=== PATIENT | male | born 1975 | race Caucasian/White ===

== ENCOUNTER 2019-02-21 17:23 | Inpatient (IN) ==
--- NOTE | 2019-02-21 18:01 | PROVIDER DOCUMENTATION ---
HPI-Rash/Wound/ReCheck - General Chief Complaint: Groin Pain Stated Complaint: RETURN/RETREAT Time Seen by Provider: 02/21/19 17:59 Source: patient Allergies/Adverse Reactions: Allergies Allergy/AdvReac Type Severity Reaction Status Date / Time No Known Allergies Allergy Verified 02/20/19 10:22 Home Medications: Home Medication List Medication Instructions Recorded Confirmed Last Taken Type Amlodipine Besylate 5 mg PO DAILY 02/20/19 02/20/19 Unknown History Atorvastatin Calcium 20 mg PO QPM 02/20/19 02/20/19 Unknown History Clindamycin [Cleocin] 150 mg PO Q6HR #30 cap 02/20/19 Unknown Rx Clonidine HCl 0.2 mg PO BID 02/20/19 02/20/19 Unknown History Duloxetine HCl 60 mg PO DAILY 02/20/19 02/20/19 Unknown History Insulin Aspart [Novolog] 6 units SQ QPM 02/20/19 02/20/19 Unknown History Insulin Aspart [Novolog] 10 units SQ DIRECTED 02/20/19 02/20/19 Unknown History Insulin Degludec [Tresiba] 14 units SQ QPM 02/20/19 02/20/19 Unknown History Metoprolol [Lopressor] 50 mg PO QPM 02/20/19 02/20/19 Unknown History Tramadol HCl 2 tab PO BID 02/20/19 02/20/19 Unknown History - History of Present Illness-Dermatology Nature of Presenting Problem: Patient is a 44yo M who presents for a recheck. Patient was seen in ED yesterday for cellulitis to his R groin. Reports he was told he needed to be admitted for IV antibiotics, however patient left AMA d/t not having anyone to watch his children. Patient reports he has had the wound x3 days. Reports hx of Staph in the same location requiring inpatient admission. States he has had a fever/chills. Was given IV antibiotics in ED yesterday, and sent with prescription for Clindamycin, which he did not fill. Reports he is a diabetic. Denies any CP, SOB, n/v/d. Location: reports: genitalia (R groin) Quality: reports: burning, painful Severity: reports: moderate Onset/Duration: reports: 3 days ago Timing: reports: still present Context/Associated Symptoms: reports: abscess, fever, tender area Identifiable cause?: No Similar Symptoms Previously?: Yes Recently seen or treated by another doctor?: Yes (Seen in ED yesterday) Review of Systems - Adult - REVIEW OF SYSTEMS - ADULT Constitutional: reports: chills, fever Eyes: reports: no symptoms reported Ears, Nose, Mouth & Throat: reports: no symptoms reported Cardiovascular: denies: chest pain, palpitations Respiratory: denies: cough, shortness of breath Gastrointestinal: denies: diarrhea, nausea, vomiting Genitourinary: reports: no symptoms reported Musculoskeletal: reports: no symptoms reported Integumentary: reports: see HPI, skin sores/ulcer Neurological: reports: no symptoms reported Psychiatric: reports: no symptoms reported Endocrine: reports: no symptoms reported All Other Systems: Reviewed and Negative Past History - Adult - PAST MEDICAL HISTORY-ADULT Review of Records: reports: Old Records Reviewed, Nursing Assessment Review, Medications Reviewed Major Childhood Illnesses: reports: denies history Cardiovascular: reports: denies history Respiratory: reports: denies history Gastrointestinal: reports: denies history Obstetrical/Gynecological: reports: denies history Genitourinary: reports: denies history Musculoskeletal: reports: denies history Neurological: reports: denies history Endocrine/Immune: reports: Diabetes Other Conditions: reports: denies history - PRIOR SURGERIES/PROCEDURES Surgical/Procedure History: reports: cholecystectomy - IMMUNIZATION STATUS Childhood Immunizations: See Nurse Assessment Flu Vaccine: See Nurse Assessment - FAMILY HISTORY Family History: diabetes - SOCIAL HISTORY Smoking: non-smoker Physical Exam-General - PHYSICAL EXAM-ADULT Initial Vital Signs Reviewed: Yes - CONSTITUTIONAL General Appearance: alert, mild distress - EYES Eyes: PERRL/EOMI, pink conjunctivae - HEAD, EARS, NOSE, MOUTH & THROAT HENMT: normocephalic/atraumatic, moist mucous membranes - NECK Neck: full range of motion, supple, normal inspection - RESPIRATORY Respiratory: chest non-tender, lungs clear, normal breath sounds, no pleuratic chest pain, no respiratory distress, no accessory muscle use - CARDIOVASCULAR Cardiovascular: regular rate, rhythm, no gallop, no murmur - GENITOURINARY Male Genitalia: erythema (R groin as well as abscess), other ([id number] abscess and surrounding erythema to R groin) Rectal Exam: deferred - MUSCULOSKELETAL Back Exam: normal inspection Extremity: normal range of motion, non-tender, normal gait, normal inspection - SKIN Integumentary: normal color, warm/dry, other ([id number] abscess w/ surrounding erythema to R groin) - NEUROLOGIC Neurologic: grossly normal - PSYCHIATRIC Psych/Mental Status: normal mood/affect, normal thought content, normal thought process, oriented x 3 Progress - PLAN OF CARE/RESULTS Progress/Plan/Lab Results: Vital Signs - 8 hr 02/21/19 17:30 02/21/19 21:06 Temperature 98.5 F 98.4 F Pulse Rate 92 H 89 Respiratory Rate 18 18 Blood Pressure 133/084 147/89 O2 Sat by Pulse Oximetry 99 98 Laboratory Results - last 24 hr 02/21/19 02/21/19 02/21/19 20:01 20:01 20:01 WBC 13.26 H RBC 4.10 L Hgb 13.4 L Hct 39.4 L MCV 96.1 MCH 32.7 H MCHC 34.0 RDW Std Deviation 11.7 Plt Count 223 MPV 10.4 Immature Gran % (Auto) 0.2 Neut % (Auto) 68.4 Lymph % (Auto) 21.5 [place] % (Auto) 8.4 Eos % (Auto) 1.3 Baso % (Auto) 0.2 Immature Gran # (Auto) 0.02 Neut # (Auto) 9.08 H Lymph # (Auto) 2.85 [place] # (Auto) 1.11 H Eos # (Auto) 0.17 Baso # (Auto) 0.03 Sodium 138 Potassium 4.8 Chloride 96 L Carbon Dioxide 25 Anion Gap 17 BUN 14 Creatinine 0.7 Estimated GFR/1.73 m2 > 60 BUN/Creatinine Ratio 20 Glucose 200 H Calculated Osmolality 282 Calcium 9.4 Total Bilirubin 0.90 AST 28 ALT 24 Alkaline Phosphatase 167 H Total Protein 7.8 Albumin 4.7 Globulin 3.0 Albumin/Globulin Ratio 2.0 Plasma Lactate 1.6 Orders Category Date Time Status Saline Loc NOW Care 02/21/19 18:01 Active BLOOD CULTURE [BLDCUL] Stat Lab 02/21/19 20:07 Ordered CBC WITH ELECTRONIC DIFF [HEME] Stat Lab 02/21/19 20:01 Completed COMPREHENSIVE METABOLIC PANEL [CHEM] Stat Lab 02/21/19 20:01 Completed LACTATE, PLASMA [CHEM] Stat Lab 02/21/19 20:[address] W/POSS RFLX CULT [URINALYSIS] Stat Lab 02/21/19 21:08 Received WOUND CULTURE INC GRAM STAIN [RM] Routine Lab 02/21/19 21:28 Ordered Acetaminophen [Tylenol] Med 02/21/19 20:24 Discontinued 1,000 mg PO NOW ONE Clindamycin 600 mg/D5w Med 02/21/19 19:35 Discontinued 600 mg in 50 ml IV NOW Lidocaine 1% Pf [Xylocaine-Mpf 1%] Med 02/21/19 21:00 Discontinued 10 ml INJ NOW ONE Result Diagrams: 02/21/19 20:01 02/21/19 20:01 - CONSULTS/PCP/HOSPITALIST Notification #1 *Consult/PCP/Hospitalist*: MD Loyda Time Discussed: 21:24 Reason/Comments: Groin abscess & cellulitis Consult Disposition: Admit Procedures - INCISION & DRAINAGE Site: R groin Abscess Type: Cutaneous Prepped with: Hibiclens Anesthetic: 1% Volume of Anesthetic (ml's): 2 Blade Size: 11 Packing placed?: No (Wound too shallow) Sterile Dressing Applied?: Yes Drainage: Purulent, Small Amount Procedure Comment: Tolerated well Departure - Departure Date of Disposition Decision: 02/21/19 Time of Disposition Decision: 21:32 DIAGNOSIS: Abscess of groin, right Cellulitis Qualifiers: Site of cellulitis: trunk Site of cellulitis of trunk: groin Qualified Code(s): L03.314 - Cellulitis of groin Disposition: ADMITTED INPATIENT 09 Certified Medical Emergency: Emergent Condition: Stable Referrals and Follow-Ups: None,PCP [Primary Care Provider] - - Critical Care Note This patient required my direct & personal management of CC.: No Attestation - Physician/ SHARON Attestation Patient care was provided by Advanced Practice Provider:: Yes Advanced Practice Provider:: Luly Loya Advanced Practice Provider documentation review:: The Mid-level provider documentation, treatment plan and medical decision making was reviewed by the physician who agrees with all treatment and medical decision making by the [facility]. The physician spent face to face time with patient:: Yes Advanced Practice Provider documentation review:: Supervising physician onsite and consulted in the evaluation and care of this patient. The physician did have a face to face encounter with the patient.
[2019-02-21] MEDS ORDERED: CLINDAMYCIN 600 MG/D5W 600 MG/50 ML IVPB IV ONE (19:35)
[2019-02-21 20:19] LABS: BASO# 0.03 X1000 (0.0-0.2); BASO% 0.2 % (0.0-0.8); EOS# 0.17 X1000 (0.0-0.7); EOS% 1.3 % (0.0-10.0); HEMATOCRIT 39.4 % (42.0-52.0); HEMOGLOBIN 13.4 g/dL (14.0-18.0); IMM GRAN# 0.02 X1000 (0.0-0.04); IMM GRAN% 0.2 % (0.0-0.5); LYMPH# 2.85 X1000 (1.2-3.4); LYMPH% 21.5 % (20.5-51.1); MCH 32.7 PG (27-31); MCV 96.1 FL (81-99); MONO# 1.11 X1000 (0.11-0.59); MONO% 8.4 % (1.7-9.3); MPV 10.4 FL (7.4-10.4); NEUT# 9.08 X1000 (1.4-6.5); NEUT% 68.4 % (42.2-75.2); PLT 223 X1000 (130-400); RDW 11.7 % (11.5-14.5); WBC 13.26 X1000 (4.8-10.8)
[2019-02-21] MEDS ORDERED: TYLENOL PO ONE (20:24)
[2019-02-21 20:46] LABS: AGAP 17; ALBUMIN 4.7 g/dL (3.5-5.0); ALKALINE PHOSPHATASE 167 U/L (32-122); BUN 14 mg/dL (8-22); CALCIUM 9.4 mg/dL (8.8-10.2); CHLORIDE 96 mmol/L (98-107); COSMO 282; CREATININE 0.7 mg/dL (0.7-1.2); ESTIMATED GFR > 60; GLUCOSE 200 mg/dL (70-104); GOT 28 U/L (10-34); GPT 24 U/L (10-44); POTASSIUM 4.8 mmol/L (3.5-5.1); SODIUM 138 mmol/L (136-145); TCO2 25 mmol/L (25-35); TOTAL PROTEIN 7.8 g/dL (6.3-8.3)
[2019-02-21] MEDS ORDERED: XYLOCAINE-MPF 1% INJ ONE (21:00)
[2019-02-21 21:37] LABS: BILIRUBIN URINE NEGATIVE (NEGATIVE); BLOOD URINE NEGATIVE (NEGATIVE); CLARITY CLEAR (CLEAR); COLOR YELLOW; KETONE URINE 2+(Moderate) mg/dL (NEGATIVE); LEUKOCYTES URINE TRACE (NEGATIVE); NITRITE URINE NEGATIVE (NEGATIVE); PH URINE 6.5; PROTEIN URINE TRACE mg/dL (NEGATIVE); UROBILINOGEN URINE NORMAL
[2019-02-21 21:52] LABS: URINE BACTERIA 1+ /HFP; URINE CAST NONE SEEN /LPF; URINE CRYSTAL NONE SEEN /HPF; URINE EPITHELIAL CELLS >10 /HPF (<10); URINE RBC <10 /HPF (<10); URINE SOURCE CLEAN CATCH; URINE WBC <10 /HPF (<10); URINE YEAST NONE SEEN /HPF
[2019-02-21] MEDS ORDERED: TORADOL IV ONE (22:01)
[2019-02-21] MEDS ORDERED: HUMULIN R (PARKWAY) SUBQ ONE (22:47)
[2019-02-21] MEDS ORDERED: VANCOMYCIN IV PER PHARMACY MISC SCH (23:00)
[2019-02-21] MEDS: HUMULIN R (PARKWAY) SUBQ SCH (23:12)
[2019-02-21] MEDS ORDERED: TORADOL IV PRN (23:52)
[2019-02-22] MEDS: VANCOMYCIN 1 GM/NS 1 GM/250 ML IVPB IV SCH ×2 (00:39→01:30)
[2019-02-22] MEDS: CLINDAMYCIN 600 MG/D5W 600 MG/50 ML IVPB IV SCH ×4 (02:38→21:52)
[2019-02-22] MEDS: HUMULIN R (PARKWAY) SUBQ SCH ×4 (09:13→20:26)
[2019-02-22] MEDS ORDERED: INSULIN PEN NEEDLES MISC PRN (09:36)
--- NOTE | 2019-02-22 10:00 | HISTORY AND PHYSICAL ---
PRIMARY CARE PHYSICIAN: Listed as none. CHIEF COMPLAINT: Right groin pain. HISTORY OF PRESENTING ILLNESS: This is a 44-year-old male who presents to [facility] ER after he was seen in the emergency department the day prior for a cellulitis and possible abscess to his right groin. He did not have any one to watch his children, and he is a single dad so he left AMA, but he had a prescription for clindamycin, but did not fill. The area to his right groin was noted to be erythematous, edematous, and warm to touch. He had an approximate 4 inch x 1-1/2 inch abscess. The ER physician attempted to drain, and got a small amount of purulent drainage. They marked the area with skin markings, and he was placed on IV antibiotics. In the emergency room, he received clindamycin 600 mg and vancomycin 1 gram IV this morning. The area is less erythematous, and the skin markings are still in place with the erythema subsiding from those edges, and does not go outside of those edges at all. It is still warm to touch. He is noted to have a dressing in place from the I D, and is still draining some purulent drainage from that area. His white blood cell count on arrival was 13.26 so he was admitted for further evaluation and treatment. PAST MEDICAL HISTORY: Diabetes, hypertension, hyperlipidemia, depression, and chronic pain. PAST SURGICAL HISTORY: Cholecystectomy. FAMILY HISTORY: He currently lives with his children. SOCIAL HISTORY: Denies any tobacco, alcohol or illicit drug use. ALLERGIES: He has no known drug allergies. HOME MEDICATIONS: He takes Norvasc 5 mg p.o. at bedtime, atorvastatin 20 mg p.o. every evening, clonidine 0.2 mg p.o. b.i.d., duloxetine 60 mg p.o. daily, NovoLog 6 units subc every evening and 10 units subcutaneous every morning, and at lunch time. Tresiba 14 units every evening, Lopressor 50 mg p.o. every evening, and tramadol 50 mg 2 tablets p.o. b.i.d. LABORATORY DATA: White blood cell count of 13.26, hemoglobin 13.4, hematocrit 39.4, and platelets 223,000. Sodium 138, potassium 4.8, chloride 96, CO2 25, BUN of 14, creatinine 0.7, glucose of 200. Plasma lactate of 1.6. Urinalysis was negative except for 1+ bacteria. It is noted when he was in the emergency room on 02/20/2019 they did do a pelvic ultrasound that showed mildly prominent lymph nodes, but no abscess identified at that time. REVIEW OF SYSTEMS: He denied any fever, chills, blurred vision, dizziness, chest pain, coughing, or shortness of breath. Denied any abdominal pain, constipation, diarrhea, burning or hurting with urination. He was positive for pain to his right groin area. PHYSICAL EXAMINATION: On arrival, he had a temperature of 98.5 degrees, pulse 92, respirations 18, blood pressure 133/84 and saturating 99% on room air. GENERAL: This is a 44-year-old male who is sitting up in the bed and answers questions appropriately. HEENT: Normocephalic, atraumatic. Normal ENT inspection. Oropharynx and nares are clear. EYES: Pupils are equal, round, reactive to light and accommodation. Extraocular movements are intact. NECK: Normal inspection. Normal range of motion. LUNGS: Clear to auscultation bilaterally with equal lung expansion and chest wall movement. HEART: Regular rate and rhythm. No murmurs, rubs, or gallops. ABDOMEN: Soft, nontender, and nondistended. Bowel sounds are present x4 quadrants. MUSCULOSKELETAL: He has 5/5 strength x4 extremities. SKIN: He is noted to have to his right groin erythema, edema and warmth to touch. When he arrived, it was a 1.5 inch x 4 inch abscess that was I D in the emergency room. Continues to drain some purulent drainage. Skin markings were placed and the erythema has improved. NEUROLOGICAL: The cranial nerves 2-12 appear grossly intact. ASSESSMENT: 1. Right groin cellulitis with abscess. 2. Mild leukocytosis secondary to #1. 3. Diabetes type 2. 4. Hypertension. PLAN: He was admitted to the medical unit, placed on a diabetic diet. We have a wound culture and urine culture pending, and blood cultures are pending x2. He was placed on clindamycin 600 mg IV q.6. The vancomycin per pharmacy protocol. Pattern blood sugars with sliding scale insulin. We will continue his home medications as previously identified. Recheck a CBC and BMP in the morning, and further orders after being seen by attending. Dictated by ODALYS Ghosh for Rowdy Scales MD cc: ODALYS Ghosh MD
[2019-02-22] MEDS: CATAPRES PO SCH ×2 (10:48→20:16)
[2019-02-22] MEDS: CYMBALTA PO SCH (10:50)
[2019-02-22] MEDS: ULTRAM PO SCH ×2 (10:51→20:15)
--- NOTE | 2019-02-22 13:27 | GENERAL SURGERY CONSULTATION ---
DATE: 02/22/2019 REQUESTING PHYSICIAN: Hospitalist. REASON FOR CONSULTATION: Groin abscess. HISTORY OF PRESENT ILLNESS: A 44-year-old gentleman with a history of groin abscess in the right groin, who initially presented to the ER at [place] the day before admission with this area. He had left AGAINST MEDICAL ADVICE secondary to inability to have anybody watch his kids. He came back to the emergency department with this area of abscess. It was drained apparently in the emergency department. He has been started on antibiotics. This wound has been present for 3 days, but he has had a history of staph infection, requiring inpatient admission in the past. He had an ultrasound done that showed no other pathology, except some prominent lymph nodes. I was asked to weigh an opinion. This area is already improved since the incision and drainage, based off of the skin markings. PAST MEDICAL HISTORY: Includes: 1. History of diabetes. 2. Previous skin infections. PAST SURGICAL HISTORY: Includes cholecystectomy, previous incision and drainage. SOCIAL HISTORY: Does drink 3 glasses of wine each day. Nonsmoker. FAMILY HISTORY: Reviewed with the patient, and noncontributory. ALLERGIES: None. MEDICATIONS: Home medications reviewed. Current MAR reviewed. REVIEW OF SYSTEMS: A full 10-point review of systems was obtained and negative, except as specified in the HPI. PHYSICAL EXAMINATION: Vital Signs: The patient is currently afebrile. His vital signs are stable. General: No acute distress. HEENT: Normocephalic, atraumatic. Pupils equal, round, reactive to light. Mucous membranes moist. Oropharynx benign. Neck: Supple. Trachea midline. Cardiovascular: Regular rate and rhythm. Lungs: Grossly clear. Abdomen: Soft, nontender, nondistended. Extremities: Moves all extremities. Skin: Wound to the right groin noted. Some purulent drainage, erythema noted with induration. The erythema is less area than what was previously noted and marked. Vascular: Lower extremities perfused. Neurologic: Grossly intact. LABORATORY DATA: White blood cell count 13. Remainder of labs were reviewed. Microbiology is pending. ASSESSMENT AND PLAN: A 44-year-old gentleman with right groin abscess. 1. Right groin abscess. At this time, will continue antibiotics. Will add warm compresses and monitor, and will do local wound care. Hopefully, this will heal on its own with antibiotics. 2. Alcohol intake. May need to consider discussing delirium tremens protocol with the hospitalist. cc: Robert Caraballo MD
[2019-02-22] MEDS: VANCOMYCIN 1,550 MG in NS 250 ML IV SCH (13:33)
[2019-02-22] MEDS: HUMALOG (PARKWAY) SUBQ SCH (14:37)
[2019-02-22] MEDS: TRESIBA FLEXTOUCH U-100 SUBQ SCH (20:13)
[2019-02-22] MEDS: LIPITOR PO SCH (20:15)
[2019-02-22] MEDS: NORVASC PO SCH (20:15)
[2019-02-22] MEDS: LOPRESSOR PO SCH (20:16)
[2019-02-22] MEDS ORDERED: HUMALOG (PARKWAY) SUBQ SCH (21:00)
--- NOTE | 2019-02-22 22:18 | HISTORY AND PHYSICAL ---
ADDENDUM: The patient has a right groin abscess. Apparently, he had a left groin abscess that was drained previously. He had a facial abscess. He has got a lot of abscesses intermittently. The one in 2013 was an MSSA abscess, but in any case, he came in with treatment because he did not see anybody. So in any case, he has a right groin abscess he has had for several days, did not improve. He went to the ER a couple days ago, but then was not able to stay because he did not have childcare and he came back in within 24 hours and he was admitted for treatment. It looks like he has probably got an MRSA or a staph furunculosis. So he has had [address] Caraballo has evaluated the patient and he will continue to follow. We are just going to do wound care and IV antibiotics and see how he does. Apparently, he is a heavy alcohol user. We will have to be careful so we will continue to monitor. Well, he drinks 3 glasses of wine a day which I guess we will not monitor for withdrawal. Currently seems like he is doing okay, but we will continue to follow closely. Disposition pending his clinical status. He has also got a mild leukocytosis which actually improved after antibiotics but on exam he seems to be doing okay. However, he has purulent drainage with erythema that is still extending. I will continue vancomycin and clindamycin until we can get culture results and tailor his antibiotic therapy accordingly. We will continue to follow closely. cc: Rowdy Scales MD
[2019-02-23] MEDS: VANCOMYCIN 1,550 MG in NS 250 ML IV SCH ×2 (00:26→12:22)
[2019-02-23] MEDS: CLINDAMYCIN 600 MG/D5W 600 MG/50 ML IVPB IV SCH ×4 (04:24→23:37)
[2019-02-23 07:15] LABS: BASO# 0.02 X1000 (0.0-0.2); BASO% 0.2 % (0.0-0.8); EOS# 0.24 X1000 (0.0-0.7); EOS% 2.7 % (0.0-10.0); HEMATOCRIT 39.3 % (42.0-52.0); HEMOGLOBIN 13.3 g/dL (14.0-18.0); IMM GRAN# 0.01 X1000 (0.0-0.04); IMM GRAN% 0.1 % (0.0-0.5); LYMPH# 1.29 X1000 (1.2-3.4); LYMPH% 14.7 % (20.5-51.1); MCH 32.4 PG (27-31); MCHC 33.8 g/dL (33-37); MCV 95.6 FL (81-99); MONO% 6.8 % (1.7-9.3); NEUT# 6.62 X1000 (1.4-6.5); NEUT% 75.5 % (42.2-75.2); PLT 225 X1000 (130-400); RBC 4.11 XMIL (4.7-6.1); RDW 11.5 % (11.5-14.5); WBC 8.78 X1000 (4.8-10.8)
[2019-02-23 07:41] LABS: AGAP 12; BUN 18 mg/dL (8-22); CALCIUM 9.2 mg/dL (8.8-10.2); CHLORIDE 100 mmol/L (98-107); COSMO 284; CREATININE 0.7 mg/dL (0.7-1.2); ESTIMATED GFR > 60; GLUCOSE 244 mg/dL (70-104); POTASSIUM 4.7 mmol/L (3.5-5.1); SODIUM 137 mmol/L (136-145); TCO2 25 mmol/L (25-35)
[2019-02-23 07:44] LABS: HEMOGLOBIN A1C 8.2 % (4.8-6.0)
[2019-02-23] MEDS: HUMULIN R (PARKWAY) SUBQ SCH ×3 (08:11→16:32)
[2019-02-23] MEDS: ULTRAM PO SCH (08:12)
[2019-02-23] MEDS: CYMBALTA PO SCH (08:13)
[2019-02-23] MEDS: CATAPRES PO SCH ×2 (08:13→20:36)
[2019-02-23] MEDS: HUMALOG (PARKWAY) SUBQ SCH ×4 (08:13→20:35)
--- NOTE | 2019-02-23 09:48 | GENERAL SURGERY PROGRESS NOTE ---
DATE: 02/23/2019 SUBJECTIVE: Patient seems to be doing okay. OBJECTIVE: Vital Signs: Patient is currently afebrile. His vital signs are stable. General: No acute distress. HEENT: Normocephalic, atraumatic. Pupils equal, round, reactive to light. Mucous membranes moist. Oropharynx benign. Neck: Supple. Trachea midline. Cardiovascular: Regular rate and rhythm. Lungs: Grossly clear. Abdomen: Soft, nontender, nondistended. Right groin erythema and induration seemed to be about the same if not slightly better. No real fluctuance at this time. Extremities: Moves all extremities. Neurologic: Grossly intact. Skin: Wound as noted above. Vascular: All extremities perfused. LABORATORY: None this morning as of yet. Microbiology shows gram-positive cocci. ASSESSMENT AND PLAN: A 44-year-old with right groin abscess: 1. Right groin abscess. At this time, recommend continue antibiotics, although I think he probably drains be transitioned over to oral antibiotics. 2. From a surgical point of view, no immediate intervention needed. I would like to follow up with him in the office, but I think he can be discharged. cc: Robert Caraballo MD
[2019-02-23] MEDS: NORCO-7.5 PO PRN ×2 (15:51→20:36)
--- NOTE | 2019-02-23 17:00 | PROGRESS NOTE ---
DATE: 02/23/2019 SUBJECTIVE: The patient has no major complaints. OBJECTIVE: Vital Signs: Blood pressure is 146/86, heart rate of 88, respiratory rate of 20, temperature 98.2 degrees. Cardiovascular: Regular rate and rhythm. Pulmonary: Bilateral breath sounds clear to auscultation. GI: Soft, nontender, nondistended. Bowel sounds are positive. LABORATORY DATA: His white count has come down, 8 from 13. Hemoglobin and hematocrit 13 and 39, platelets of 225,000. Blood sugars still a little bit marginal. PROBLEM LIST: 1. Right groin abscess cellulitis. He is on antibiotics. The erythema and cellulitis have greatly improved. I am just waiting on final culture results. Preliminarily, though it is read as positive methicillin resistant Staphylococcus aureus, so we will need to treat that. 2. Diabetes. We will continue his regular medications. He usually takes Tresiba and NovoLog. His A1c is actually pretty not real well controlled, which is likely what is causing a lot of his issues, but we are going to continue to follow. DISPOSITION: Possibly home soon pending his improvement in his clinical status. cc: Rowdy Scales MD
[2019-02-23] MEDS: LIPITOR PO SCH (20:36)
[2019-02-23] MEDS: NORVASC PO SCH (20:36)
[2019-02-23] MEDS: TRESIBA FLEXTOUCH U-100 SUBQ SCH (20:36)
[2019-02-23] MEDS: LOPRESSOR PO SCH (20:36)
[2019-02-24] MEDS: VANCOMYCIN 1,550 MG in NS 250 ML IV SCH (00:21)
[2019-02-24] MEDS: CLINDAMYCIN 600 MG/D5W 600 MG/50 ML IVPB IV SCH ×3 (05:03→17:04)
[2019-02-24] MEDS: HUMALOG (PARKWAY) SUBQ SCH ×3 (06:19→16:06)
[2019-02-24 08:01] LABS: BASO# 0.02 X1000 (0.0-0.2); BASO% 0.3 % (0.0-0.8); EOS# 0.19 X1000 (0.0-0.7); EOS% 2.8 % (0.0-10.0); HEMATOCRIT 39.9 % (42.0-52.0); HEMOGLOBIN 13.5 g/dL (14.0-18.0); IMM GRAN# 0.01 X1000 (0.0-0.04); IMM GRAN% 0.1 % (0.0-0.5); LYMPH# 1.37 X1000 (1.2-3.4); LYMPH% 20.4 % (20.5-51.1); MCH 32.4 PG (27-31); MCHC 33.8 g/dL (33-37); MCV 95.7 FL (81-99); MONO# 0.48 X1000 (0.11-0.59); MONO% 7.2 % (1.7-9.3); MPV 10.1 FL (7.4-10.4); NEUT# 4.64 X1000 (1.4-6.5); NEUT% 69.2 % (42.2-75.2); PLT 259 X1000 (130-400); RBC 4.17 XMIL (4.7-6.1); RDW 11.7 % (11.5-14.5); WBC 6.71 X1000 (4.8-10.8)
[2019-02-24] MEDS: CYMBALTA PO SCH (08:25)
[2019-02-24] MEDS: NORCO-7.5 PO PRN ×3 (08:25→16:11)
[2019-02-24] MEDS: CATAPRES PO SCH (08:25)
[2019-02-24] MEDS ORDERED: VANCOMYCIN 1,750 MG in NS 250 ML IV SCH (12:30)
[2019-02-24 16:01] VITALS: BP 157/85
--- NOTE | 2019-03-23 16:30 | DISCHARGE SUMMARY ---
ADMISSION DATE: 02/21/2019 DISCHARGE DATE: 02/24/2019 DIAGNOSES: 1. Right groin abscess cellulitis. 2. Type 2 diabetes. CONSULTATION: Dr. Caraballo. HISTORY: Briefly this 44-year-old gentleman presenting with pain in his groin. He has a history of MRSA staph for ankylosis. Apparently, there was lot of alcohol history. He was placed empirically on antibiotics. His culture grew out Staph aureus which was MRSA sensitive to, Bactrim, vancomycin and Gentamicin. He slowly clinically improved. Dr. Caraballo evaluated the patient and did not feel like he needed any further surgical treatment. He had an I and D I believe done in the ER prior to admission. On the his white count was stable, he was afebrile, down from 13,000. He was felt stable for discharge. DISCHARGE MEDICATIONS: 1. Amlodipine 5 at bedtime. 2. Atorvastatin 20 daily. 3. Clonidine 0.2 b.i.d. 4. Cymbalta 60 daily. 5. Lopressor 50 daily. 6. NovoLog 10 units daily. 7. Tramadol 100 b.i.d. 8. Tresiba 14 units daily. 9. Bactrim 1 p.o. b.i.d. for 10 daily days. 10. [place] 7.5 p.r.n. pain. DISCHARGE CONDITION: Stable. 32 minute discharge. cc: Rowdy Scales MD
== END 2019-02-24 19:45 | disposition home or self-care (01) | DRG 603 ==
LOC: SUPCPDRO → P.ED 17:23 → P.MEDSURG 22:11
PROVIDERS: ATTEND Internal Medicine
CPT/HCPCS: 80048; 80053; 80202; 81001; 82948; 83036; 83605; 85025; 87040; 87070; 87077; 87088; 87186; 96365; 96375; 99285; A9270; J1815; J1885; J3370; J7050; XXXXX